=== PATIENT | male | born 1980 | race African-American/Black ===

== ENCOUNTER 2019-06-20 17:26 | Emergency (ER) | payer OTHER ==
[~2019-06-20] VITALS: Ht 167.6 cm; Wt 81.6 kg
[2019-06-20 17:46] VITALS: BP 140/86
--- NOTE | 2019-06-20 18:22 | NUR ---
Patient ambulated to bed 4 with family. RN evaluating patient at bedside.
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
--- NOTE | 2019-06-20 19:03 | NUR ---
GILA SWIFT AT BEDSIDE EVALUATING PT.
[2019-06-20] MEDS ORDERED: ALBUTEROL SULFATE/IPRATROPIU 3 ML SOL IH ONE ×2 (19:10→19:55)
[2019-06-20] MEDS ORDERED: predniSONE 20 MG TAB PO ONE (19:10)
--- NOTE | 2019-06-20 19:17 | NUR ---
gave report to jannie dye.
--- NOTE | 2019-06-20 19:23 | NUR ---
PATIENT AOX4, BREATHING LABORED AND EVEN. LUNGS WHEEZING ON EXPIRATION, ERMD MADE AWARE. RR 20, SPOT 99%.
[2019-06-20] MEDS ORDERED: BUDESONIDE 0.5 MG/2 ML NEBU INH ONE (19:55)
[2019-06-20 20:29] VITALS: BP 140/86
--- NOTE | 2019-06-20 20:29 | NUR ---
Patient discharged with v/s stable. Written and verbal after care instructions given and explained. Patient alert, oriented and verbalized understanding of instructions. Ambulatory with to car. All questions addressed prior to discharge. ID band removed. Patient advised to follow up with PMD. Rx of PREDNISONE, ALBUTEROL, PROMETHAZINE given. Patient educated on indication of medication including possible reaction and side effects. Opportunity to ask questions provided and answered.
== END 2019-06-20 20:29 | disposition home or self-care (01) ==
LOC: MED 17:26
DX: J45.901 Unspecified asthma with (acute) exacerbation (principal)
CPT/HCPCS: 94640; 99284; J7512; J7626

== ENCOUNTER 2020-04-18 20:12 | Emergency (ER) | payer MEDICAID, OTHER ==
--- NOTE | 2020-04-18 20:23 | NUR ---
CALLED FOR THE PT 3X. PT IS NOWHERE TO BE FOUND.
--- NOTE | 2020-04-18 20:50 | NUR ---
CALLED PT 3X. PT IS STILL NOWHERE TO BE FOUND. PT LWBS.
== END 2020-04-18 20:50 | disposition left against medical advice (07) ==
LOC: MED 20:12
DX: Z53.21 Procedure and treatment not carried out due to patient leaving prior to being seen by health care provider (principal)

== ENCOUNTER 2020-12-09 04:43 | Emergency (ER) | payer MEDICAID ==
[~2020-12-09] VITALS: Ht 167.6 cm; Wt 83.9 kg
[2020-12-09 04:48] VITALS: BP 115/74
--- NOTE | 2020-12-09 04:52 | NUR ---
AMBULATED TO BED
--- NOTE | 2020-12-09 04:54 | NUR ---
SEE COMEPLETE ASSESMENT.
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
[2020-12-09] MEDS ORDERED: BACITRACIN OINT 500 UNITS/GM PKT TP ONE (05:08)
--- NOTE | 2020-12-09 05:10 | NUR ---
TDAP VACCINATION CONSENT SIGNED.
--- NOTE | 2020-12-09 05:12 | NUR ---
Patient does not wish to proceed with X-Ray recommended by . Patient given information related to possible complications, up to and including , which could occur as a result from refusing treatment/test at this time. Patient verbalizes understanding of risks involved from refusing treatment/test. Patient has signed refusal of treatment form.
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
[2020-12-09 05:20] VITALS: BP 115/74
--- NOTE | 2020-12-09 05:20 | NUR ---
Patient does not wish to proceed with medical care recommended by . Patient given information related to possible complications, up to and including , which could occur as a result of leaving hospital at this time. Patient verbalizes understanding of risks involved leaving against medical advice. Patient has signed AMA form.
--- NOTE | 2020-12-09 05:33 | NUR ---
CALLED [facility] PA AND SPOKE WITH ANGEL FROM DISPATCH, EXPLAINED PATIENT LEFT AMA.
== END 2020-12-09 05:20 | disposition left against medical advice (07) ==
LOC: MED 04:43
DX: S71.131A Puncture wound without foreign body, right thigh, initial encounter (principal); X95.8XXA Assault by other firearm discharge, initial encounter; Y93.89 Activity, other specified; Y92.89 Other specified places as the place of occurrence of the external cause; Y99.8 Other external cause status
CPT/HCPCS: 90471; 90715; 99283

== ENCOUNTER 2024-02-08 15:14 | Emergency (ER) | payer MEDICAID ==
[~2024-02-08] VITALS: Ht 167.6 cm; Wt 89.5 kg
[2024-02-08 15:48] VITALS: BP 130/87; PULSE 69; RESP 18; TEMP 99.2; O2SAT 100
[2024-02-08] MEDS ORDERED: CEPH-588 PO (16:09)
[2024-02-08] MEDS ORDERED: IBUP-2213 PO (16:09)
[2024-02-08] MEDS: IBUPROFEN 600 MG TAB PO ONE (16:21)
[2024-02-08] MEDS: cephALEXin 500 MG CAP PO ONE (16:21)
== END 2024-02-08 16:29 | disposition home or self-care (01) ==
LOC: MED 15:14
DX: L03.115 Cellulitis of right lower limb (principal); R03.0 Elevated blood-pressure reading, without diagnosis of hypertension; J45.909 Unspecified asthma, uncomplicated; Z79.899 Other long term (current) drug therapy
CPT/HCPCS: 99283